=== PATIENT | male | born 1970 | race Caucasian/White ===

== ENCOUNTER 2017-08-18 04:02 | Emergency (ER) | payer OTHER ==
[~2017-08-18] VITALS: Ht 188 cm; Wt 150.1 kg
--- NOTE | 2017-08-18 04:15 | ED DYSPNEA/ASTHMA COMPLAINT ---
History of Present Illness General Chief Complaint: General Adult Stated Complaint: PER PT COUGHED AND HEARD POP ON L RIB CAGE Source: patient Exam Limitations: no limitations Vital Signs & Intake/Output Vital Signs & Intake/Output Vital Signs Date Time Temp Pulse Resp B/P B/P Pulse O2 O2 Flow FiO2 Mean Ox Delivery Rate 08/18 0408 97.9 98 18 153/94 93 Room Air Allergies Coded Allergies: methocarbamol (From ROBAXIN) (Severe, ANAPHYLAXIS 08/18/17) Reconcile Medications Oxycodone HCl/Acetaminophen (Percocet 5-325 MG Tablet) 5 MG-325 MG TABLET 1 TAB PO 4XDP PRN PAIN seven...[id number] Triage Note: PT FROM HOME C/O LEFT RIB CAGE INJURY PER PT. PT STATES HE HAS HAD BRONCHITIS FOR THE PAST COUPLE OF MONTHS, PT STATES THAT LAST NIGHT AROUND 2300 PT COUGHED SO HARD THAT HE HEARD A "POP" ON THE LEFT SIDE OF HIS RIB CAGE. PT STATES "I TOOK 800MG MOTRIN PO AND THEN PLACED A LIDOCAINE PATCH ON THE LEFT RIB TO SEE IF THAT WOULD HELP" PT CAN AMBULATE WITH STEADY GAIT JUST SLOWLY. PT STATES THAT WHEN HE MOVES OR COUGHS THE PAIN COMES BACK. PT STATES INTERMITTENT PAIN OF 10/10 THAT IS NON RADIATING. VSS. Triage Nurses Notes Reviewed? yes Onset: Abrupt Duration: minute(s): Timing: single episode today Severity: mild Activities at Onset: "I coughed and I heard a pop in my stomach" Prior Episodes/Possible Cause: "I had a pulled muscle a few weeks ago... this feels like the same thing." Modifying Factors: Improves With: rest. Worsens With: movement. Associated Symptoms: muscle spasm on left abdominal wall HPI: 47 yo gentleman in prior good health presents with abdominal wall pain for the past few hours. He shares that he had previously pulled his muscle on his left abdomen, and was being treated with lidocaine patches and supportive medications. Tonight, he coughed, "and I felt a pop in my abdominal wall... like a muscle popped." He took ibuprofen 800mg and placed a lidocaine patch on the area. He states that he still feels discomfort, worse with palpation and movement. He has no phlegm, chills, dyspnea, chest pain, syncopal type symptoms. He is otherwise well. Past History Travel History Traveled to [place] past 21 day No Medical History Any Pertinent Medical History? see below for history Cardiovascular: hypertension Respiratory: bronchitis Surgical History Surgical History: none Psychosocial History What is your primary language Serbian Tobacco Use: Never used Family History Hx Contributory? No Review of Systems Review of Systems Constitutional: Reports: no symptoms. EENTM: Reports: no symptoms. Respiratory: Reports: no symptoms. Cardiovascular: Reports: no symptoms. GI: Reports: no symptoms. Genitourinary: Reports: no symptoms. Musculoskeletal: Reports: no symptoms. Skin: Reports: no symptoms. Neurological/Psychological: Reports: no symptoms. Hematologic/Endocrine: Reports: no symptoms. Immunologic/Allergic: Reports: no symptoms. All Other Systems: Reviewed and Negative Physical Exam Physical Exam General Appearance: well developed/nourished, mild distress Head: atraumatic, normal appearance Eyes: Bilateral: normal appearance. Ears, Nose, Throat: normal pharynx, normal ENT inspection Neck: normal inspection, supple, full range of motion Respiratory: normal breath sounds, chest non-tender, no respiratory distress, quiet respiration, lungs clear Cardiovascular: regular rate/rhythm Gastrointestinal: left sided abdominal wall tenderness in musculature. no rebound. no guarding. no rlq, ruq tenderness. abdomen is mild distended. , no hernias Extremities: normal inspection, normal capillary refill, normal range of motion, no edema Neurologic/Psych: no motor/sensory deficits, awake, alert, oriented x 3 Skin: intact, normal color, warm/dry Core Measures ACS in differential dx? No CVA/TIA Diagnosis No Sepsis Present: No Sepsis Focused Exam Completed? No Progress Differential Diagnosis: muscle spasm vs other. Plan of Care: Current Medications Sig/Gabriel Start time Last Medication Dose Stop Time Status Admin Morphine Sulfate 6 MG ONCE ONE 08/18 429 UNVr (Morphine) 08/18 430 Initial ED EKG: none Departure Departure Disposition: HOME OR SELF CARE Condition: Stable Clinical Impression Primary Impression: Muscle strain Secondary Impressions: Abdominal pain Departure Forms: Customer Survey General Discharge Information Prescriptions: Current Visit Scripts Oxycodone HCl/Acetaminophen (Percocet 5-325 MG Tablet) 1 TAB PO 4XDP PRN PAIN #7 TAB seven...[id number] Comments 08/18/17, 4:55am... pt feeling better after morphine... discussed at length . pt feels comfortable going home and defering labs/scans... he will return if not feeling better. Critical Care Note Critical Care Note Critical Care Time: non-applicable ED Attending Observation Initial Observation Note: I have seen and personally examined NICOLEBOYD on 08/18/17 at 0457. I agree with the current emergency department documentation. The disposition (admission or discharge) is uncertain at this time, he needs a period of observation for the following reason(s): The ED Nurse caring for this patient has been personally informed as to what the patient is being observed for.
[2017-08-18] MEDS ORDERED: PERCOCET 5-3251 EACH PO ×2 (04:29→04:57)
[2017-08-18 05:16] VITALS: BP 151/64
== END 2017-08-18 05:17 ==
LOC: ERH 04:02
DX: S39.011A Strain of muscle, fascia and tendon of abdomen, initial encounter (principal); R10.9 Unspecified abdominal pain; X50.0XXA Overexertion from strenuous movement or load, initial encounter; Y93.9 Activity, unspecified; Y92.9 Unspecified place or not applicable
CPT/HCPCS: 96372